=== PATIENT | female | born 1995 | race Two or more races ===

== ENCOUNTER 2022-12-03 10:21 | Emergency (ER) | payer OTHER ==
[~2022-12-03] VITALS: Ht 157.5 cm; Wt 59.0 kg
[2022-12-03 12:30] LABS: HEMATOCRIT 40.3 % (36.0-45.00); HEMOGLOBIN 13.7 g/dL (12.0-15.00); MEAN CELL VOLUME 92.7 fL (80.00-100.00); MEAN CORPUSCULAR HEMOGLOBIN 31.5 pg (27.00-32.0); MEAN CORPUSCULAR HGB CONC 33.9 g/dl (32.0-36.0); PLATELET COUNT 179 K/uL (150-450); RED BLOOD COUNT 4.35 M/uL (4.00-6.00); RED CELL DISTRIBUTION WIDTH 13.3 % (11.5-14.5)
== END 2022-12-03 14:15 | disposition home or self-care (01) ==
LOC: ER 10:21
DX: R53.81 Other malaise (principal); B34.9 Viral infection, unspecified; Z20.822 Contact with and (suspected) exposure to COVID-19